=== PATIENT | male | born 1940 | race Caucasian/White ===

== ENCOUNTER 2019-01-31 21:58 | Inpatient (IN) | payer MEDICARE ==
[~2019-01-31] VITALS: Ht 167.6 cm; Wt 833.2 kg
[2019-02-01] MEDS ORDERED: FAMOTIDINE 20MG/2ML VIAL IV STA (00:07)
[2019-02-01] MEDS ORDERED: MAGNESIUM/ALUMINUM HYDROXIDE/SIMETHICONE 30ML UDC PO STA (00:07)
[2019-02-01] MEDS ORDERED: SODIUM CHLORIDE 0.9% 1,000 ML IV ONE (00:07)
[2019-02-01] MEDS ORDERED: ONDANSETRON HCL 4MG/2ML INJ IV STA (00:07)
[2019-02-01] MEDS ORDERED: MORPHINE SULFATE 4 MG/ML CPJ (NOT FOR IM USE) IV STA (00:07)
[2019-02-01 00:37] LABS: HEMATOCRIT. 46.4 % (42.0-52.0); HEMOGLOBIN. 15.6 g/dL (14.0-18.0); MEAN CORPUSCULAR HEMOGLOBIN 29.6 pg (28.0-32.0); MEAN PLATELET VOLUME 8.6 fl (7.4-10.4); PLATELET 142 x1000/uL (130-400); RED BLOOD CELL COUNT 5.28 mill/uL (4.7-6.1); RED CELL DISTRIBUTION WIDTH 14.8 % (11.6-14.6)
[2019-02-01 00:41] LABS: CLARITY URINE CLEAR (CLEAR); COLOR URINE YELLOW (YELLOW); KETONES URINE NEGATIVE (NEGATIVE); LEUKOCYTE ESTERASE URINE NEGATIVE (NEGATIVE); NITRITE URINE NEGATIVE (NEGATIVE); OCCULT BLOOD URINE NEGATIVE (NEGATIVE); PROTEIN URINE NEGATIVE (NEGATIVE); UROBILINOGEN URINE 0.2 E.U./dL (0.2-1.0)
[2019-02-01 00:51] LABS: CHLORIDE 108 mEq/L (98-107)
[2019-02-01] MEDS ORDERED: CEFTRIAXONE 1 G PREMIX 50 ML IV SCH (04:00)
[2019-02-01] MEDS ORDERED: IOHEXOL-300 100 ML BOTTLE ONE (04:01)
[2019-02-01 05:10] LABS: ATYPICAL LYMPHOCYTES 1; PLATELET ESTIMATE NORMAL
[2019-02-01] MEDS ORDERED: ZOLPIDEM TARTRATE 5MG TABLET PO PRN (10:30)
[2019-02-01] MEDS ORDERED: TRAMADOL 50MG TABLET PO PRN (10:30)
[2019-02-01] MEDS ORDERED: NITROGLYCERIN 0.4MG TABLET SL SL PRN (10:30)
[2019-02-01] MEDS ORDERED: GUAIFENESIN 200MG/10ML SUGAR FREE UDC PO PRN (10:30)
[2019-02-01] MEDS ORDERED: ACETAMINOPHEN 325MG TABLET PO PRN (10:30)
[2019-02-01] MEDS ORDERED: MAGNESIUM/ALUMINUM HYDROXIDE/SIMETHICONE 30ML UDC PO PRN (10:30)
[2019-02-01] MEDS ORDERED: LORAZEPAM 2MG/ML CPJ IV PRN (10:30)
[2019-02-01] MEDS ORDERED: CLONIDINE 0.1MG TABLET PO PRN (10:30)
[2019-02-01] MEDS ORDERED: MORPHINE SULFATE 2 MG/ML CPJ (NOT FOR IM USE) IV PRN (10:30)
[2019-02-01] MEDS ORDERED: DOCUSATE SODIUM 100MG CAPSULE PO PRN (10:30)
[2019-02-01] MEDS ORDERED: IPRATROPIUM/ALBUTEROL 0.5-3(2.5)MG/3ML NEB INH PRN (10:30)
[2019-02-01] MEDS ORDERED: ONDANSETRON HCL 4MG/2ML INJ IV PRN (10:30)
[2019-02-01 10:38] VITALS: BP 106/65
[2019-02-01 13:00] VITALS: BP_SYST 122; BP_SYST 255; BP_DIAS 72; BP_DIAS 74
[2019-02-01] MEDS: PANTOPRAZOLE SODIUM 40 MG/VIAL IV SCH (14:04)
[2019-02-01] MEDS: ENOXAPARIN 40MG/0.4ML SYR SUBCUT SCH (14:05)
[2019-02-01] MEDS: METRONIDAZOLE 500 MG PREMIX 100 ML IV SCH ×2 (14:05→21:55)
[2019-02-01] MEDS: DEXT 5%/LACTATED RINGERS 1,000 ML IV SCH (14:06)
[2019-02-01 14:40] LABS: *AMPHETAMINES SCREEN URINE NEGATIVE (NEGATIVE); *BARBITURATES SCREEN URINE NEGATIVE (NEGATIVE); *BENZODIAZEPINES SCREEN URINE NEGATIVE (NEGATIVE); *COCAINE SCREEN URINE NEGATIVE (NEGATIVE)
[2019-02-01 14:41] LABS: CANNABINOID URINE SCREEN NEGATIVE (NEGATIVE); METHADONE URINE SCREEN NEGATIVE (NEGATIVE); OPIATES URINE SCREEN NEGATIVE (NEGATIVE); PHENCYCLIDINE URINE SCREEN NEGATIVE (NEGATIVE)
[2019-02-01] MEDS: LEVOFLOXACIN 500MG PREMIX 100 ML IV SCH (15:40)
[2019-02-01 16:00] VITALS: BP 122/72
[2019-02-01 20:00] VITALS: BP 117/60
[2019-02-01] MEDS: METOPROLOL TARTRATE 25MG TABLET PO SCH (21:00)
[2019-02-02] VITALS: BP 111/48
[2019-02-02] MEDS: DEXT 5%/LACTATED RINGERS 1,000 ML IV SCH ×2 (01:20→05:52)
[2019-02-02 04:00] VITALS: BP 94/58
[2019-02-02] MEDS: METRONIDAZOLE 500 MG PREMIX 100 ML IV SCH ×2 (06:03→14:36)
[2019-02-02 07:21] LABS: BASOPHILS % 0.4 % (0.0-2.0); EOSINOPHILS % 0.3 % (0.0-5.0); HEMATOCRIT. 41.6 % (42.0-52.0); HEMOGLOBIN. 14.1 g/dL (14.0-18.0); LYMPHOCYTES % 10.5 % (20.0-50.0); MEAN CORPUSCULAR HEMOGLOBIN 29.8 pg (28.0-32.0); MEAN CORPUSCULAR VOLUME 88.2 fL (80.0-94.0); MEAN PLATELET VOLUME 9.1 fl (7.4-10.4); MONOCYTES % 6.7 % (2.0-8.0); NEUTROPHILS % 82.1 % (40.0-76.0); PLATELET 110 x1000/uL (130-400); RED BLOOD CELL COUNT 4.72 mill/uL (4.7-6.1); RED CELL DISTRIBUTION WIDTH 15.2 % (11.6-14.6)
[2019-02-02 07:44] LABS: CHLORIDE 109 mEq/L (98-107)
[2019-02-02 07:54] LABS: CREATINE KINASE 135 IU/L (39-308)
[2019-02-02 07:55] LABS: CREATINE KINASE MB FRACTION 3.3 ng/mL (0.5-3.6)
[2019-02-02 07:59] LABS: LDL CHOLESTEROL 83 mg/dL (5-100)
[2019-02-02 08:00] VITALS: BP 109/72
[2019-02-02 08:00] LABS: HDL CHOLESTEROL 35 mg/dL (40-59)
[2019-02-02] MEDS: METOPROLOL TARTRATE 25MG TABLET PO SCH (09:00)
[2019-02-02] MEDS: PANTOPRAZOLE SODIUM 40 MG/VIAL IV SCH (09:44)
[2019-02-02] MEDS: ENOXAPARIN 40MG/0.4ML SYR SUBCUT SCH (09:44)
[2019-02-02 12:00] VITALS: BP 113/55
[2019-02-02] MEDS: LEVOFLOXACIN 500MG PREMIX 100 ML IV SCH (12:40)
[2019-02-02 13:49] VITALS: BP 113/55
== END 2019-02-02 15:32 | disposition home health service (06) | DRG 445 ==
LOC: ER 21:58 → 8WST 02-01 04:46 → ENRESERV 02-01 09:25
PROVIDERS: ADMIT Internal Medicine; ATTEND Internal Medicine
DX: K80.10 Calculus of gallbladder with chronic cholecystitis without obstruction (principal); I74.09 Other arterial embolism and thrombosis of abdominal aorta; E87.6 Hypokalemia; I71.4 Abdominal aortic aneurysm, without rupture; I10 Essential (primary) hypertension; R93.2 Abnormal findings on diagnostic imaging of liver and biliary tract; D72.829 Elevated white blood cell count, unspecified; I51.3 Intracardiac thrombosis, not elsewhere classified; Z79.899 Other long term (current) drug therapy
CPT/HCPCS: 36415; 71045; 74177; 76705; 78227; 80061; 80305; 81003; 82550; 82553; 83036; 83735; 83880; 84484; 85379; 93005; 93306; 93970; 96361; 96374; 97161; 97166; 99285; A9537; C9113; J0696; J1650; J1956; J2270; J2405; J3490; J7030; Q9967

== ENCOUNTER 2019-03-02 11:54 | Emergency (ER) | payer MEDICARE, MEDICAID ==
[~2019-03-02] VITALS: Ht 157.5 cm; Wt 79.3 kg
[2019-03-02] MEDS ORDERED: IBUPROFEN 600MG TABLET PO ONE (13:30)
[2019-03-02 13:45] VITALS: BP 129/89
== END 2019-03-02 13:47 | disposition home or self-care (01) ==
LOC: ER 11:54
DX: L03.116 Cellulitis of left lower limb (principal); I10 Essential (primary) hypertension
CPT/HCPCS: 99283